=== PATIENT | male | born 1970 ===

== ENCOUNTER 2019-06-22 22:22 | Inpatient (IN) | payer OTHER ==
[2019-06-22] MEDS ORDERED: ACETAMINOPHEN TAB 500 MG TAB PO STA (22:35)
--- NOTE | 2019-06-22 23:07 | ED ---
General Adult HPI - General Chief complaint: Fever Stated complaint: Fever Time Seen by Provider: 06/22/19 22:35 Source: patient, EMS Mode of arrival: EMS Limitations: physical limitation - History of Present Illness Initial comments: Dictation was produced using [employer] dictation software. please excuse any grammatical, word or spelling errors. Chief Complaint: 49-year-old male presents with fever and respiratory symptoms. History of Present Illness: Patient is a 49-year-old male who is brought in by EMS. Patient lives at home with his mother. Patient has history of spina bifida. States that over the last several hours he's been developing fever. He took an Aleve. Patient was evaluated by his dentist yesterday on antibiotics for infected gums. Patient denies any shortness of breath, does have a mild nonproductive cough. He states he does have a little tickle in his chest. Patient states his skin hurts from the fever. Denies abdominal pain. No chest pain, no rash no burning in urination. No flank pain or lower back pain. Patient self cath himself. The ROS documented in this emergency department record has been reviewed and confirmed by me. Those systems with pertinent positive or negative responses have been documented in the HPI. All other systems are other negative and/or noncontributory. PHYSICAL EXAM: General Impression: Alert and oriented x3, not in acute distress HEENT: Normocephalic atraumatic, extra-ocular movements intact, pupils equal and reactive to light bilaterally, mucous membranes moist. Cardiovascular: Heart regular rate and rhythm, S1&S2 audible, no murmurs, rubs or gallops Chest: Lungs clear to auscultation bilaterally, no rhonchi, no wheeze, no rales Abdomen: Bowel sounds present, abdomen soft, non-tender, non-distended, no organomegaly Musculoskeletal: Pulses present and equal in all extremities, no peripheral edema Motor: no focal deficits noted Neurological: CN II-XII grossly intact, no focal motor or sensory deficits noted Skin: Intact with no visualized rashes Psych: Normal affect and mood ED course: 49-year-old male past medical history spina bifida, paraplegic. Presents today with fever. Blood pressure is stable. Patient given Tylenol orally. Temperature is improved to 101.6 with a heart rate of 125. Patient does not have any localizing symptoms however he does catheterize himself to urinate. There is strong concern for UTI sepsis. Laboratory evaluation obtained. Mild leukocytosis of 12.4. Cardiac panel unremarkable. Metabolic panel shows lactic acidosis of 2.8 with anion gap acidosis. Urinalysis positive for 56 white blood cells. Flu tests in the patient is negative. Chest x-ray is nonacute. Patient broad-spectrum antibiotics. Culture and sensitivities was reviewed from urine cultures. Clinical presentation consistent with UTI sepsis. Patient will be admitted for UTI sepsis. Discussed patient case Dr. Bingham who is willing to accept patients care. Infectious disease will be on consult. EKG interpretation: Ventricular rate 137, sinus tachycardia,. Interval and 16, QRS 80, QTc 416. No NC prolongation, no QTC prolongation, no ST or T-wave changes noted. Overall, this EKG is unremarkable - Related Data Home Medications Medication Instructions Recorded Confirmed Oxybutynin Chloride [Ditropan] 5 mg PO DAILY@1100 09/01/14 06/22/19 Amitriptyline HCl 25 mg PO HS@0000 PRN 06/22/19 06/22/19 Amoxicillin 500 mg PO Q8H 06/22/19 06/22/19 Chlorhexidine Gluconate [Periogard] 15 ml PO BID@0000,1100 06/22/19 06/22/19 DULoxetine HCL [Cymbalta] 30 mg PO BID@0000,1100 06/22/19 06/22/19 Metoprolol Succinate [Toprol XL] 50 mg PO DAILY@1100 06/22/19 06/22/19 Allergies Allergy/AdvReac Type Severity Reaction Status Date / Time piperacillin sodium AdvReac Diarrhea Verified 06/22/19 23:24 [From Zosyn] tazobactam sodium AdvReac Diarrhea Verified 06/22/19 23:24 [From Zosyn] Review of Systems ROS Statement: Those systems with pertinent positive or pertinent negative responses have been documented in the HPI. ROS Other: All systems not noted in ROS Statement are negative. Past Medical History Past Medical History: Deep Vein Thrombosis (DVT), Hypertension Additional Past Medical History / Comment(s): RIGHT HIP WOUND.has brain shunt, scoliosis, spina bifida, neurogenic bladder History of Any Multi-Drug Resistant Organisms: Other MDRO Past Surgical History: Back Surgery, Bladder Surgery Additional Past Surgical History / Comment(s): brain shunt revision, surgery for scoliosis with screws, back surgery for spina bifida, bladder augmentation, surgery for pressure ulcers . rt hip aspiration with bone biopsy 09-06-2015 Past Anesthesia/Blood Transfusion Reactions: No Reported Reaction Past Psychological History: No Psychological Hx Reported Smoking Status: Never smoker Past Alcohol Use History: Occasional Past Drug Use History: None Reported - Past Family History Mother Family Medical History: No Reported History Father Family Medical History: Diabetes Mellitus General Exam Limitations: physical limitation Course Vital Signs 06/22/19 06/22/19 06/23/19 22:28 23:58 00:46 Temperature 104.3 F H 101.6 F H Pulse Rate 147 H 125 H 122 H Respiratory 20 17 17 Rate Blood Pressure 123/85 119/75 O2 Sat by Pulse 97 98 99 Oximetry Medical Decision Making - Lab Data Result diagrams: 06/22/19 22:51 06/22/19 22:51 Lab Results 06/22/19 06/22/19 06/22/19 Range/Units 22:51 22:51 22:51 WBC 11.4 H (3.8-10.6) k/uL RBC 5.22 (4.30-5.90) m/uL Hgb 16.5 (13.0-17.5) gm/dL Hct 50.4 (39.0-53.0) % MCV 96.6 (80.0-100.0) fL MCH 31.6 (25.0-35.0) pg MCHC 32.7 (31.0-37.0) g/dL RDW 12.5 (11.5-15.5) % Plt Count 229 (150-450) k/uL Neutrophils % 82 % Lymphocytes % 7 % Monocytes % 7 % Eosinophils % 1 % Basophils % 0 % Neutrophils # 9.4 H (1.3-7.7) k/uL Lymphocytes # 0.9 L (1.0-4.8) k/uL Monocytes # 0.8 (0-1.0) k/uL Eosinophils # 0.2 (0-0.7) k/uL Basophils # 0.0 (0-0.2) k/uL PT 10.0 (9.0-12.0) sec INR 1.0 (<1.2) APTT 22.7 (22.0-30.0) sec Sodium 135 L (137-145) mmol/L Potassium 4.9 (3.5-5.1) mmol/L Chloride 104 (98-107) mmol/L Carbon Dioxide 19 L (22-30) mmol/L Anion Gap 12 mmol/L BUN 22 H (9-20) mg/dL Creatinine 0.97 (0.66-1.25) mg/dL Est GFR (CKD-EPI)AfAm >90 (>60 ml/min/1.73 sqM) Est GFR (CKD-EPI)NonAf >90 (>60 ml/min/1.73 sqM) Glucose 100 H (74-99) mg/dL Plasma Lactic Acid Don (0.7-2.0) mmol/L Calcium 9.5 (8.4-10.2) mg/dL Total Bilirubin 0.8 (0.2-1.3) mg/dL AST 66 H (17-59) U/L ALT 24 (4-49) U/L Alkaline Phosphatase 117 (38-126) U/L Troponin I (0.000-0.034) ng/mL Total Protein 8.4 H (6.3-8.2) g/dL Albumin 4.5 (3.5-5.0) g/dL Urine Color Urine Appearance (Clear) Urine pH (5.0-8.0) Ur Specific [place] (1.001-1.035) Urine Protein (Negative) Urine Glucose (UA) (Negative) Urine Ketones (Negative) Urine Blood (Negative) Urine Nitrite (Negative) Urine Bilirubin (Negative) Urine Urobilinogen (<2.0) mg/dL Ur Leukocyte Esterase (Negative) Urine RBC (0-5) /hpf Urine WBC (0-5) /hpf Urine Bacteria (None) /hpf Hyaline Casts (0-2) /lpf Urine Mucus (None) /hpf Influenza Type A RNA (Not Detectd) Influenza Type B (PCR) (Not Detectd) Group A Strep Rapid (Negative) 06/22/19 06/22/19 06/22/19 Range/Units 22:51 22:51 23:05 WBC (3.8-10.6) k/uL RBC (4.30-5.90) m/uL Hgb (13.0-17.5) gm/dL Hct (39.0-53.0) % MCV (80.0-100.0) fL MCH (25.0-35.0) pg MCHC (31.0-37.0) g/dL RDW (11.5-15.5) % Plt Count (150-450) k/uL Neutrophils % % Lymphocytes % % Monocytes % % Eosinophils % % Basophils % % Neutrophils # (1.3-7.7) k/uL Lymphocytes # (1.0-4.8) k/uL Monocytes # (0-1.0) k/uL Eosinophils # (0-0.7) k/uL Basophils # (0-0.2) k/uL PT (9.0-12.0) sec INR (<1.2) APTT (22.0-30.0) sec Sodium (137-145) mmol/L Potassium (3.5-5.1) mmol/L Chloride (98-107) mmol/L Carbon Dioxide (22-30) mmol/L Anion Gap mmol/L BUN (9-20) mg/dL Creatinine (0.66-1.25) mg/dL Est GFR (CKD-EPI)AfAm (>60 ml/min/1.73 sqM) Est GFR (CKD-EPI)NonAf (>60 ml/min/1.73 sqM) Glucose (74-99) mg/dL Plasma Lactic Acid Don 2.8 H* (0.7-2.0) mmol/L Calcium (8.4-10.2) mg/dL Total Bilirubin (0.2-1.3) mg/dL AST (17-59) U/L ALT (4-49) U/L Alkaline Phosphatase (38-126) U/L Troponin I <0.012 (0.000-0.034) ng/mL Total Protein (6.3-8.2) g/dL Albumin (3.5-5.0) g/dL Urine Color Urine Appearance (Clear) Urine pH (5.0-8.0) Ur Specific [place] (1.001-1.035) Urine Protein (Negative) Urine Glucose (UA) (Negative) Urine Ketones (Negative) Urine Blood (Negative) Urine Nitrite (Negative) Urine Bilirubin (Negative) Urine Urobilinogen (<2.0) mg/dL Ur Leukocyte Esterase (Negative) Urine RBC (0-5) /hpf Urine WBC (0-5) /hpf Urine Bacteria (None) /hpf Hyaline Casts (0-2) /lpf Urine Mucus (None) /hpf Influenza Type A RNA Not Detected (Not Detectd) Influenza Type B (PCR) Not Detected (Not Detectd) Group A Strep Rapid (Negative) 06/22/19 06/23/19 Range/Units 23:18 00:38 WBC (3.8-10.6) k/uL RBC (4.30-5.90) m/uL Hgb (13.0-17.5) gm/dL Hct (39.0-53.0) % MCV (80.0-100.0) fL MCH (25.0-35.0) pg MCHC (31.0-37.0) g/dL RDW (11.5-15.5) % Plt Count (150-450) k/uL Neutrophils % % Lymphocytes % % Monocytes % % Eosinophils % % Basophils % % Neutrophils # (1.3-7.7) k/uL Lymphocytes # (1.0-4.8) k/uL Monocytes # (0-1.0) k/uL Eosinophils # (0-0.7) k/uL Basophils # (0-0.2) k/uL PT (9.0-12.0) sec INR (<1.2) APTT (22.0-30.0) sec Sodium (137-145) mmol/L Potassium (3.5-5.1) mmol/L Chloride (98-107) mmol/L Carbon Dioxide (22-30) mmol/L Anion Gap mmol/L BUN (9-20) mg/dL Creatinine (0.66-1.25) mg/dL Est GFR (CKD-EPI)AfAm (>60 ml/min/1.73 sqM) Est GFR (CKD-EPI)NonAf (>60 ml/min/1.73 sqM) Glucose (74-99) mg/dL Plasma Lactic Acid Don (0.7-2.0) mmol/L Calcium (8.4-10.2) mg/dL Total Bilirubin (0.2-1.3) mg/dL AST (17-59) U/L ALT (4-49) U/L Alkaline Phosphatase (38-126) U/L Troponin I (0.000-0.034) ng/mL Total Protein (6.3-8.2) g/dL Albumin (3.5-5.0) g/dL Urine Color Light Yellow Urine Appearance Clear (Clear) Urine pH 5.5 (5.0-8.0) Ur Specific [place] 1.009 (1.001-1.035) Urine Protein Negative (Negative) Urine Glucose (UA) Negative (Negative) Urine Ketones Negative (Negative) Urine Blood Negative (Negative) Urine Nitrite Positive (Negative) Urine Bilirubin Negative (Negative) Urine Urobilinogen <2.0 (<2.0) mg/dL Ur Leukocyte Esterase Large H (Negative) Urine RBC 1 (0-5) /hpf Urine WBC 56 H (0-5) /hpf Urine Bacteria Rare H (None) /hpf Hyaline Casts 1 (0-2) /lpf Urine Mucus Rare H (None) /hpf Influenza Type A RNA (Not Detectd) Influenza Type B (PCR) (Not Detectd) Group A Strep Rapid Negative (Negative) Disposition Clinical Impression: Sepsis secondary to UTI Disposition: ADMITTED IP TO THIS HOSP Condition: Fair Referrals: Solomon Moran MD [Primary Care Provider] - 1-2 days Decision Time: 01:07
[2019-06-22 23:09] LABS: Basophils % (A) 0 %; Eosinophils # (A) 0.2 k/uL (0-0.7); Eosinophils % (A) 1 %; HCT 50.4 % (39.0-53.0); HGB 16.5 gm/dL (13.0-17.5); Lymphocytes # (A) 0.9 k/uL (1.0-4.8); Lymphocytes % (A) 7 %; MCH 31.6 pg (25.0-35.0); MCHC 32.7 g/dL (31.0-37.0); MCV 96.6 fL (80.0-100.0); Mean Platelet Volume 7.8; Monocytes # (A) 0.8 k/uL (0-1.0); Monocytes % (A) 7 %; Neutrophils # (A) 9.4 k/uL (1.3-7.7); Neutrophils % (A) 82 %; Platelet Count 229 k/uL (150-450); RBC 5.22 m/uL (4.30-5.90); RDW 12.5 % (11.5-15.5); WBC 11.4 k/uL (3.8-10.6)
[2019-06-22] MEDS ORDERED: SODIUM CHLORIDE 0.9% 1,000 ML IV STA (23:10)
--- NOTE | 2019-06-22 23:10 | XR ---
EXAMINATION TYPE: XR chest 1V portable DATE OF EXAM: 06/22/2019 COMPARISON: NONE HISTORY: Fever TECHNIQUE: Single view FINDINGS: There is no heart failure nor confluent pneumonic infiltrate. Costophrenic angles are clear . Heart size is normal. There are chest leads. IMPRESSION: No active cardiopulmonary disease. Normal heart.
[2019-06-22] MEDS: SODIUM CHLORIDE 0.9% 500 ML 500 ML IV SCH ×2 (23:11→23:36)
[2019-06-22 23:28] LABS: ALT 24 U/L (4-49); African American GFR (CKD) >90 (>60 ml/min/1.73 sqM); Anion Gap 12 mmol/L; Blood Urea Nitrogen 22 mg/dL (9-20); Calcium 9.5 mg/dL (8.4-10.2); Carbon Dioxide 19 mmol/L (22-30); Chloride 104 mmol/L (98-107); Glucose 100 mg/dL (74-99); Non-African American GFR(CKD) >90 (>60 ml/min/1.73 sqM); Sodium 135 mmol/L (137-145); Total Bilirubin 0.8 mg/dL (0.2-1.3)
[2019-06-22 23:30] LABS: Partial Thromboplastin Time 22.7 sec (22.0-30.0)
[2019-06-22] MEDS ORDERED: VANCOMYCIN IV PER PHARMACY 1 EACH MISC MISCELLANE PRN (23:30)
[2019-06-22 23:31] LABS: AST 66 U/L (17-59); Albumin 4.5 g/dL (3.5-5.0); Alkaline Phosphatase 117 U/L (38-126); Potassium 4.9 mmol/L (3.5-5.1); Total Protein 8.4 g/dL (6.3-8.2)
[2019-06-22] MEDS ORDERED: CEFEPIME 2 GM in SODIUM CHLORIDE 0.9% 100 ML IVPB ONE (23:45)
[2019-06-23] MEDS ORDERED: VANCOMYCIN 1,500 MG in SODIUM CHLORIDE 0.9% 250 ML IVPB ONE (00:30)
[2019-06-23 00:49] LABS: Appearance,Urine Clear (Clear); Bacteria,Urine Rare /hpf; Bilirubin,Urine Negative (Negative); Blood,Urine Negative (Negative); Color,Urine Light Yellow; Glucose,Urine (UA) Negative (Negative); Hyaline Casts,Urine 1 /lpf (0-2); Ketones,Urine Negative (Negative); Leukocyte Esterase,Urine Large (Negative); Mucus,Urine Rare /hpf; Nitrite,Urine Positive (Negative); PH, Urine 5.5 (5.0-8.0); Protein,Urine Negative (Negative); RBC,Urine 1 /hpf (0-5); Specific Gravity,Urine 1.009 (1.001-1.035); Urobilinogen,Urine <2.0 mg/dL (<2.0); WBC,Urine 56 /hpf (0-5)
[2019-06-23] MEDS ORDERED: ONDANSETRON 4 MG/2 ML VIAL IVP PRN (01:04)
[2019-06-23] MEDS ORDERED: NALOXONE 0.4 MG/ML 1 ML VIAL IV PRN (01:04)
[2019-06-23] MEDS: SODIUM CHLORIDE 0.9% 1,000 ML IV SCH ×3 (01:54→22:04)
[2019-06-23] MEDS: ACETAMINOPHEN TAB 325 MG TAB PO PRN ×2 (07:31→17:46)
[2019-06-23] MEDS ORDERED: PANTOPRAZOLE 40 MG/10 ML VIAL IV SCH (09:00)
[2019-06-23] MEDS: DULoxetine HCL 30 MG CAPSULE.DR PO SCH ×2 (11:23→23:23)
[2019-06-23] MEDS: METOPROLOL SUCCINATE (ER) 50 MG TAB.ER.24H PO SCH (11:23)
[2019-06-23] MEDS: CHLORHEXIDINE GLUCONATE 15 ML CUP MUCOUS MEM SCH ×2 (11:23→23:21)
[2019-06-23] MEDS: OXYBUTYNIN CHLORIDE 5 MG TAB PO SCH (11:23)
--- NOTE | 2019-06-23 12:40 | US ---
EXAMINATION TYPE: US kidneys/renal and bladder DATE OF EXAM: 06/23/2019 COMPARISON: NONE CLINICAL HISTORY: UTI, chronic. Patient stated had bladder augmentation using bowel; scoliosis EXAM MEASUREMENTS: Right Kidney: 8.2 x 6.0 x 4.9 cm Left Kidney: 12.6 x cm Post Void Residual Volume: NA for indwelling catheter Limited renal visualization is due to overlying bowel gas. Right Kidney: No hydronephrosis or masses seen; smaller size than left kidney Left Kidney: No hydronephrosis or masses seen Bladder: lobular appearance to super and mid bladder wall with wall folds noted and with indwelling c atheter seen in inferior bladder Bilateral Jets seen: NA with indwelling catheter IMPRESSION: No hydronephrosis or nephrolithiasis. The right upper pole is suboptimally visualized given overlying bowel gas. Urinary bladder displays a lobulated contour which is seen on the prior CT of 2005 from [facility] surgical revision of the bladder.
[2019-06-23] MEDS ORDERED: VANCOMYCIN 1,250 MG in SODIUM CHLORIDE 0.9% 250 ML IVPB SCH (13:00)
--- NOTE | 2019-06-23 14:26 | P.HPIM ---
History of Present Illness H&P Date: 06/23/19 This is a 49-year-old -[place] male patient of Dr. Moran with past medical history of spina bifida, scoliosis, hydrocephalus status post brain shunt, hypertension, DVT, neurogenic bladder. Patient currently lives in an apartment with his mother and is able to manage his own ADLs. Patient states he last had a urinary tract infection 2 years ago. He states he has been under care for an infection in his tooth by his dentist and has been on amoxicillin for 3 to fours days. He states that yesterday he developed chills and bilateral evening at 5 PM she he was having fever. He denies any diarrhea, last bowel movement was 2 days ago and normal. He denies having any abdominal pain, no back pain. He denies any chest pain, palpitations. She denies having any shortness of breath. He denies any recent travel, sick exposures. Patient came into [facility] emergency center for evaluation. Temperature 104.3, heart rate 147, blood pressure 123/85, pulse ox 97% on room air. EKG sinus tachycardia with no acute ST changes. WBC 11.4 otherwise CBC unremarkable. Sodium 135, potassium 4.9, chloride 104, CO2 19, BUN 22 and creatinine 0.97. Lactic acid 2.8 and repeat this morning of 2. AST 66, ALT 24, alkaline phosphatase 117, troponin negative. Urinalysis clear, leukoesterase large, WBC 56, bacteria rare. Influenza A and B and group A strep negative. [facility] Patient has been started on ceftriaxone for urinary tract infection. Patient normally self caths. A Lou catheter was placed in the emergency center. Review of Systems Constitutional: Reports chills, Reports fatigue, Reports fever, Reports poor appetite, Reports weakness, Denies anorexia Eyes: denies blurred vision, denies pain Ears, nose, mouth and throat: Denies dysphagia, Denies headache, Denies nasal congestion, Denies nasal discharge, Denies sore throat, Denies vertigo Cardiovascular: Denies chest pain, Denies decreased exercise tolerance, Denies dyspnea on exertion, Denies edema, Denies irregular heart beat, Denies leg edema, Denies lightheadedness, Denies palpitations, Denies shortness of breath, Denies syncope Respiratory: Denies cough, Denies cough with sputum, Denies dyspnea, Denies excessive sputum, Denies hemoptysis, Denies home oxygen, Denies respiratory infections, Denies sleep apnea, Denies wheezing Gastrointestinal: Denies abdominal pain, Denies diarrhea, Denies nausea, Denies vomiting Genitourinary: Denies dysuria Musculoskeletal: Denies frequent falls, Denies gait dysfunction, Denies muscle weakness, Denies myalgias Integumentary: Denies pruritus, Denies rash, Denies wounds Neurological: Denies change in mentation, Denies change in speech, Denies numbness, Denies seizures, Denies weakness Psychiatric: Denies anxiety, Denies depression Endocrine: Denies fatigue, Denies weight change Past Medical History Past Medical History: Deep Vein Thrombosis (DVT), Hypertension Additional Past Medical History / Comment(s): Has brain shunt, scoliosis, spina bifida, neurogenic bladder History of Any Multi-Drug Resistant Organisms: Other MDRO Past Surgical History: Back Surgery, Bladder Surgery Additional Past Surgical History / Comment(s): brain shunt revision, surgery for scoliosis with screws, back surgery for spina bifida, bladder augmentation, surgery for pressure ulcers. rt hip aspiration with bone biopsy 09-06-2015 Past Anesthesia/Blood Transfusion Reactions: No Reported Reaction Past Psychological History: No Psychological Hx Reported Smoking Status: Never smoker Past Alcohol Use History: Occasional Additional Past Alcohol Use History / Comment(s): Patient is a lifelong nonsmoker, no illicit drug use, rare alcohol use. Patient lives at home with his mother in apartment. He is wheelchair bound and able to manage his own ADLs. Patient normally self catheterizes. Past Drug Use History: None Reported - Past Family History Mother Family Medical History: No Reported History Additional Family Medical History / Comment(s): Mother is alive with no major medical problems. Father Family Medical History: Diabetes Mellitus Additional Family Medical History / Comment(s): Father has history of diabetes. Patient does not have any brothers. Patient has 2 sisters with no major medical problems. Patient is to have any children. Medications and Allergies Home Medications Medication Instructions Recorded Confirmed Type Oxybutynin Chloride [Ditropan] 5 mg PO DAILY@1100 09/01/14 06/22/19 History Amitriptyline HCl 25 mg PO HS@0000 PRN 06/22/19 06/22/19 History Amoxicillin 500 mg PO Q8H 06/22/19 06/22/19 History Chlorhexidine Gluconate [Periogard] 15 ml PO BID@0000,1100 06/22/19 06/22/19 Hi story DULoxetine HCL [Cymbalta] 30 mg PO BID@0000,1100 06/22/19 06/22/19 History Metoprolol Succinate [Toprol XL] 50 mg PO DAILY@1100 06/22/19 06/22/19 History Allergies Allergy/AdvReac Type Severity Reaction Status Date / Time piperacillin sodium AdvReac Diarrhea Verified 06/22/19 23:24 [From Zosyn] tazobactam sodium AdvReac Diarrhea Verified 06/22/19 23:24 [From Zosyn] Physical Exam Vitals: Vital Signs Temp Pulse Pulse Resp BP BP Pulse Ox 06/23/19 08:00 16 06/23/19 07:00 98.6 F 128 H 16 103/60 96 06/23/19 01:52 99.8 F H 109 H 17 100/64 99 06/23/19 01:45 99.9 F H 97 18 100/66 96 06/23/19 01:28 111 H 18 111/67 99 06/23/19 01:15 101.5 F H 06/23/19 00:46 122 H 17 119/75 99 06/22/19 23:58 101.6 F H 125 H 17 98 06/22/19 22:28 104.3 F H 147 H 20 123/85 97 Intake and Output 06/22/19 06/23/19 06/23/19 22:59 06:59 14:59 Intake Total 350 296 Output Total 200 Balance 150 296 Intake: Intake, IV Titration 350 Amount Sodium Chloride 0.9% 1, 100 000 ml @ 100 mls/hr IV . Q10H KI Rx#:[id number] Vancomycin 1,250 mg In 250 Sodium Chloride 0.9% 250 ml @ 125 mls/hr IVPB Q12H KI Rx#:[id number] Oral 296 Output: Urine 200 Other: Voiding Method Indwelling Catheter Indwelling Catheter Weight 74.843 kg 74.843 kg Gen: This is a 49-year-old male. Patient is in bed and appears to be operable and in no acute distress. HEENT: Head is atraumatic, normocephalic. Pupils equal, round. Sclerae is anicteric. NECK: Supple. No JVD. No lymphadenopathy. No thyromegaly. LUNGS: Clear to auscultation. No wheezes or rhonchi. No intercostal retractions . HEART: Regular rate and rhythm. No murmur. ABDOMEN: Soft. Bowel sounds are present. No masses. No tenderness. Lou catheter with cherri urine return. EXTREMITIES: No pedal edema. No calf tenderness. The deformity noted to the bilateral lower extremities. Patient is able to lift both legs at the hip joint. No motion below the knees. NEUROLOGICAL: Patient is awake, alert and oriented x3. Cranial nerves 2 through 12 are grossly intact. Results CBC & Chem 7: 06/22/19 22:51 06/22/19 22:51 Labs: Abnormal Lab Results - Last 24 Hours (Table) 06/22/19 06/22/19 06/22/19 Range/Units 22:51 22:51 22:51 WBC 11.4 H (3.8-10.6) k/uL Neutrophils # 9.4 H (1.3-7.7) k/uL Lymphocytes # 0.9 L (1.0-4.8) k/uL Sodium 135 L (137-145) mmol/L Carbon Dioxide 19 L (22-30) mmol/L BUN 22 H (9-20) mg/dL Glucose 100 H (74-99) mg/dL Plasma Lactic Acid Don 2.8 H* (0.7-2.0) mmol/L AST 66 H (17-59) U/L Total Protein 8.4 H (6.3-8.2) g/dL Ur Leukocyte Esterase (Negative) Urine WBC (0-5) /hpf Urine Bacteria (None) /hpf Urine Mucus (None) /hpf 06/23/19 06/23/19 Range/Units 00:38 02:56 WBC (3.8-10.6) k/uL Neutrophils # (1.3-7.7) k/uL Lymphocytes # (1.0-4.8) k/uL Sodium (137-145) mmol/L Carbon Dioxide (22-30) mmol/L BUN (9-20) mg/dL Glucose (74-99) mg/dL Plasma Lactic Acid Don 2.2 H* (0.7-2.0) mmol/L AST (17-59) U/L Total Protein (6.3-8.2) g/dL Ur Leukocyte Esterase Large H (Negative) Urine WBC 56 H (0-5) /hpf Urine Bacteria Rare H (None) /hpf Urine Mucus Rare H (None) /hpf Thrombosis Risk Factor Assmnt - DVT/VTE Prophylaxis DVT/VTE Prophylaxis: Pharmacologic Prophylaxis ordered - Choose All That Apply Each Factor Represents 1 point: Age 41-60 years Other Risk Factors: No Other congenital or acquired thrombophilia - If yes, enter type in comment: No Thrombosis Risk Factor Assessment Total Risk Factor Score: 1 Thrombosis Risk Factor Assessment Level: Low Risk Assessment and Plan Plan: 1. Acute urinary tract infection with sepsis. Urine culture and blood culture in progress. Start ceftriaxone. Discontinue vancomycin. 2. Lactic acidosis secondary to sepsis, improved. Continue IV fluids. 3. Spina bifida with paraplegia lower extremities. Continue amitriptyline 25 mg at bedtime 4. Neurogenic bladder. Maintain Lou catheter, continue oxybutynin 5 mg daily 5. Hypertension. Continue Toprol-XL 30 mg daily. 6. Tooth infection. Patient has been transitioned to ceftriaxone. Continue PerioGard. 7. Recurrent depression. Continue Cymbalta 30 mg twice daily. 8. GI prophylaxis. Protonix. 9. DVT prophylaxis. Lovenox. Patient will be admitted to the hospital for a minimum of 2 night stay. Discharge plan: Return home. Impression and plan of care have been directed as dictated by the signing physician. Anna Darden nurse practitioner acting as scribe for signing physician.
--- NOTE | 2019-06-23 22:05 | P.CONS ---
History of Present Illness - Reason for Consult Consult date: 06/23/19 UTI Requesting physician: Jewell Bingham - Chief Complaint Fever x 1 day - History of Present Illness Patient is a 49-year male with a past medical he significant for spina bifida in this patient who did have a urinary retention for which the patient self catheterize himself 3 times a day patient presented to the ER last night with a chief complaints of fever patient apparently mentioning urine is getting more darker and he was thinking he was starting coming up with UTI patient denies having any headache or URI symptoms no chest pain shortness of breath or cough no abdominal pain or any diarrhea with the symptom the patient was evaluated by the ER physician on arrival to the ER the patient did have a fever of 104.3 F patient did have a mildly positive UA with large leukocyte Estrace 56 WBC lactic acid was 2.2 influenza A PCR was negative patient did have a chest x-ray that was negative for any acute infiltrate patient has been diagnosed with a urinary tract infection he was started on Rocephin admitted to the hospital infectious disease was consulted for further recommendation about antibiotic therapy. Review of Systems positive point has been mentioned in HPI rest of the systems are negative. Past Medical History Past Medical History: Deep Vein Thrombosis (DVT), Hypertension Additional Past Medical History / Comment(s): Has brain shunt, scoliosis, spina bifida, neurogenic bladder History of Any Multi-Drug Resistant Organisms: Other MDRO Past Surgical History: Back Surgery, Bladder Surgery Additional Past Surgical History / Comment(s): brain shunt revision, surgery for scoliosis with screws, back surgery for spina bifida, bladder augmentation, surgery for pressure ulcers. rt hip aspiration with bone biopsy 09-06-2015 Past Anesthesia/Blood Transfusion Reactions: No Reported Reaction Past Psychological History: No Psychological Hx Reported Smoking Status: Never smoker Past Alcohol Use History: Occasional Past Drug Use History: None Reported - Past Family History Mother Family Medical History: No Reported History Father Family Medical History: Diabetes Mellitus Medications and Allergies Home Medications Medication Instructions Recorded Confirmed Type Oxybutynin Chloride [Ditropan] 5 mg PO DAILY@1100 09/01/14 06/22/19 History Amitriptyline HCl 25 mg PO HS@0000 PRN 06/22/19 06/22/19 History Amoxicillin 500 mg PO Q8H 06/22/19 06/22/19 History Chlorhexidine Gluconate [Periogard] 15 ml PO BID@0000,1100 06/22/19 06/22/19 History DULoxetine HCL [Cymbalta] 30 mg PO BID@0000,1100 06/22/19 06/22/19 History Metoprolol Succinate [Toprol XL] 50 mg PO DAILY@1100 06/22/19 06/22/19 History Allergies Allergy/AdvReac Type Severity Reaction Status Date / Time piperacillin sodium AdvReac Diarrhea Verified 06/22/19 23:24 [From Zosyn] tazobactam sodium AdvReac Diarrhea Verified 06/22/19 23:24 [From Zosyn] Physical Exam Vitals: Vital Signs Temp Pulse Pulse Resp BP BP Pulse Ox 06/23/19 08:00 16 06/23/19 07:00 98.6 F 128 H 16 103/60 96 06/23/19 01:52 99.8 F H 109 H 17 100/64 99 06/23/19 01:45 99.9 F H 97 18 100/66 96 06/23/19 01:28 111 H 18 111/67 99 06/23/19 01:15 101.5 F H 06/23/19 00:46 122 H 17 119/75 99 06/22/19 23:58 101.6 F H 125 H 17 98 06/22/19 22:28 104.3 F H 147 H 20 123/85 97 Intake and Output 06/22/19 06/23/19 06/23/19 22:59 06:59 14:59 Intake Total 350 532 Output Total 200 Balance 150 532 Intake: Intake, IV Titration 350 Amount Sodium Chloride 0.9% 1, 100 000 ml @ 100 mls/hr IV . Q10H KI Rx#:[id number] Vancomycin 1,250 mg In 250 Sodium Chloride 0.9% 250 ml @ 125 mls/hr IVPB Q12H KI Rx#:[id number] Oral 532 Output: Urine 200 Other: Voiding Method Indwelling Catheter Indwelling Catheter Weight 74.843 kg 74.843 kg GENERAL DESCRIPTION: Middle-aged male lying in bed, no distress. No tachypnea or accessory muscle of respiration use. HEENT: Shows Pallor , no scleral icterus. Oral mucous membrane is dry. NECK: Trachea central, no thyromegaly. LUNGS: Unlabored breathing. Clear to auscultation anteriorly. No wheeze or crackle. HEART: S1, S2, regular rate and rhythm. ABDOMEN: Soft, no tenderness , guarding or rigidity EXTREMITIES: No edema of feet. SKIN: No rash, no masses palpable. NEUROLOGICAL: The patient is awake, alert, oriented x3, mood and affect normal. Results CBC & Chem 7: 06/22/19 22:51 06/22/19 22:51 Labs: Abnormal Lab Results - Last 24 Hours (Table) 06/22/19 06/22/19 06/22/19 Range/Units 22:51 22:51 22:51 WBC 11.4 H (3.8-10.6) k/uL Neutrophils # 9.4 H (1.3-7.7) k/uL Lymphocytes # 0.9 L (1.0-4.8) k/uL Sodium 135 L (137-145) mmol/L Carbon Dioxide 19 L (22-30) mmol/L BUN 22 H (9-20) mg/dL Glucose 100 H (74-99) mg/dL Plasma Lactic Acid Don 2.8 H* (0.7-2.0) mmol/L AST 66 H (17-59) U/L Total Protein 8.4 H (6.3-8.2) g/dL Ur Leukocyte Esterase (Negative) Urine WBC (0-5) /hpf Urine Bacteria (None) /hpf Urine Mucus (None) /hpf 06/23/19 06/23/19 Range/Units 00:38 02:56 WBC (3.8-10.6) k/uL Neutrophils # (1.3-7.7) k/uL Lymphocytes # (1.0-4.8) k/uL Sodium (137-145) mmol/L Carbon Dioxide (22-30) mmol/L BUN (9-20) mg/dL Glucose (74-99) mg/dL Plasma Lactic Acid Don 2.2 H* (0.7-2.0) mmol/L AST (17-59) U/L Total Protein (6.3-8.2) g/dL Ur Leukocyte Esterase Large H (Negative) Urine WBC 56 H (0-5) /hpf Urine Bacteria Rare H (None) /hpf Urine Mucus Rare H (None) /hpf Microbiology - Last 24 Hours (Table) 06/23/19 00:38 Urine Culture - Preliminary Urine,Clean Catch 06/22/19 23:18 Group A Strep Throat Culture - Preliminary Throat Assessment and Plan Assessment: -patient presented to the hospital with fever in this patient who did have a positive UA with risk factor of self-catheterization because of urine retention for the UTI more likely from enteric gram-negative pathogen in this patient fever clinically responded to the IV Rocephin and currently with no other obvious focus of infection influenza PCR was negative chest x-ray was negative abdominal soft on clinical examination (1) Sepsis secondary to UTI Current Visit: Yes Status: Acute Code(s): A41.9 - SEPSIS, UNSPECIFIED ORGANISM; N39.0 - URINARY TRACT INFECTION, SITE NOT SPECIFIED SNOMED Code(s): 648196570 Plan: 1-Rocephin 1 g daily 2-gentle IV fluid We will follow on clinical condition and cultures to further adjust medication if needed Thank you for this consultation we will follow the patient along with you Time with Patient: Greater than 30
[2019-06-24] MEDS ORDERED: IBUPROFEN 400 MG TAB PO PRN
[2019-06-24] MEDS ORDERED: AMITRIPTYLINE HCL 25 MG TAB PO PRN
[2019-06-24] MEDS: SODIUM CHLORIDE 0.9% 1,000 ML IV SCH ×2 (08:45→17:39)
[2019-06-24] MEDS: ENOXAPARIN 40 MG/0.4 ML SYRINGE SQ SCH (08:51)
[2019-06-24] MEDS: METOPROLOL SUCCINATE (ER) 50 MG TAB.ER.24H PO SCH (08:52)
[2019-06-24] MEDS: PANTOPRAZOLE 40 MG TABLET PO SCH (08:52)
[2019-06-24] MEDS ORDERED: SODIUM CHLORIDE 0.9% 1,000 ML IV ONE (10:19)
[2019-06-24] MEDS ORDERED: KETOROLAC 30 MG/ML 1 ML VIAL IVP PRN (10:21)
[2019-06-24] MEDS: CHLORHEXIDINE GLUCONATE 15 ML CUP MUCOUS MEM SCH ×2 (12:00→22:50)
[2019-06-24] MEDS: DULoxetine HCL 30 MG CAPSULE.DR PO SCH ×2 (12:00→22:50)
[2019-06-24] MEDS: OXYBUTYNIN CHLORIDE 5 MG TAB PO SCH (12:00)
--- NOTE | 2019-06-24 13:28 | P.PN ---
Subjective Progress Note Date: 06/24/19 This is a 49-year-old -Burm[place] male patient of Dr. Moran with past medical history of spina bifida, scoliosis, hydrocephalus status post brain shunt, hypertension, DVT, neurogenic bladder. Patient currently lives in an apartment with his mother and is able to manage his own ADLs. Patient states he last had a urinary tract infection 2 years ago. He states he has been under care for an infection in his tooth by his dentist and has been on amoxicillin for 3 to fours days. He states that yesterday he developed chills and bilateral evening at 5 PM she he was having fever. He denies any diarrhea, last bowel movement was 2 days ago and normal. He denies having any abdominal pain, no back pain. He denies any chest pain, palpitations. She denies having any shortness of breath. He denies any recent travel, sick exposures. Patient came into [facility] emergency center for evaluation. Temperature 104.3, heart rate 147, blood pressure 123/85, pulse ox 97% on room air. EKG sinus tachycardia with no acute ST changes. WBC 11.4 otherwise CBC unremarkable. Sodium 135, potassium 4.9, chloride 104, CO2 19, BUN 22 and creatinine 0.97. Lactic acid 2.8 and repeat this morning of 2. AST 66, ALT 24, alkaline phosphatase 117, troponin negative. Urinalysis clear, leukoesterase large, WBC 56, bacteria rare. Influenza A and B and group A strep negative. Patient was admitted to the [facility] floor. Patient has been started on ceftriaxone for urinary tract infection. Patient normally self caths. A Lou catheter was placed in the emergency center. 06/23: Patient has been seen by Dr. Interiano and patient continued on ceftriaxone. Urine culture is currently in progress. Culture is in progress. Patient had sinus tachycardia 130 to 140s this morning. After nurse gave his beta boo, heart rate is now running in the patient also developed headache yesterday evening 110-115. 1 L of IV fluids will be ordered for bolus. Patient developed headache last evening and was given Motrin without any improvement of his pain. Toradol will be ordered. Patient states he feels a little feverish still but improved. He denies any nausea, no neck pain, no visual changes. Patient has been afebrile, heart rate 109, blood pressure 109/68, pulse ox 93% on room air. Objective - Vital Signs Vital signs: Vital Signs Temp 98.2 F 06/24/19 07:00 Pulse 56 L 06/24/19 07:00 Resp 18 06/24/19 07:00 BP 164/73 06/24/19 07:00 Pulse Ox 98 06/24/19 07:00 Intake & Output 06/23/19 06/24/19 06/24/19 18:59 06:59 18:59 Intake Total 828 Output Total 1300 1450 Balance -472 -1450 Intake: Oral 828 Output: Urine 1300 1450 Other: Voiding Method Indwelling Catheter Indwelling Catheter - Exam Review of Systems Constitutional: Reports chills, Reports fatigue, Reports fever, Reports poor appetite, Reports weakness, Denies anorexia, reports headache Eyes: denies blurred vision, denies pain Ears, nose, mouth and throat: Denies dysphagia, Denies headache, Denies nasal congestion, Denies nasal discharge, Denies sore throat, Denies vertigo Cardiovascular: Denies chest pain, Denies decreased exercise tolerance, Denies dyspnea on exertion, Denies edema, Denies irregular heart beat, Denies leg edema, Denies lightheadedness, Denies palpitations, Denies shortness of breath, Denies syncope Respiratory: Denies cough, Denies cough with sputum, Denies dyspnea, Denies excessive sputum, Denies hemoptysis, Denies home oxygen, Denies respiratory infections, Denies sleep apnea, Denies wheezing Gastrointestinal: Denies abdominal pain, Denies diarrhea, Denies nausea, Denies vomiting Genitourinary: Denies dysuria Musculoskeletal: Denies frequent falls, Denies gait dysfunction, Denies muscle weakness, Denies myalgias Integumentary: Denies pruritus, Denies rash, Denies wounds Neurological: Denies change in mentation, Denies change in speech, Denies numbness, Denies seizures, Denies weakness Psychiatric: Denies anxiety, Denies depression Endocrine: Denies fatigue, Denies weight change Physical examination Gen: This is a 49-year-old male. Patient is in bed and appears to be comfortable and in no acute distress. HEENT: Head is atraumatic, normocephalic. Pupils equal, round. Sclerae is anicteric. NECK: Supple. No JVD. No lymphadenopathy. No thyromegaly. LUNGS: Clear to auscultation. No wheezes or rhonchi. No intercostal retra ctions. HEART: Regular rate and rhythm. No murmur. ABDOMEN: Soft. Bowel sounds are present. No masses. No tenderness. Lou catheter with cherri urine return. EXTREMITIES: No pedal edema. No calf tenderness. The deformity noted to the bilateral lower extremities. Patient is able to lift both legs at the hip joint. No motion below the knees. NEUROLOGICAL: Patient is awake, alert and oriented x3. Cranial nerves 2 through 12 are grossly intact. - Labs CBC & Chem 7: 06/22/19 22:51 06/22/19 22:51 Labs: Microbiology - Last 24 Hours (Table) 06/22/19 22:51 Blood Culture - Preliminary Blood No Growth after 24 hours 06/23/19 00:38 Urine Culture - Preliminary Urine,Clean Catch 06/22/19 23:18 Group A Strep Throat Culture - Preliminary Throat Assessment and Plan Plan: 1. Acute urinary tract infection with sepsis. Urine culture and blood culture in progress. Continue ceftriaxone. Discontinue vancomycin. Consult with Dr. Jaydon de los santos. 2. Lactic acidosis secondary to sepsis, improved. Continue IV fluids. 3. Spina bifida with paraplegia lower extremities. Continue amitriptyline 25 mg at bedtime 4. Neurogenic bladder. Maintain Lou catheter, continue oxybutynin 5 mg daily. Patient normally self caths. Straight cath have been ordered for the patient to use at home. 5. Hypertension. Continue Toprol-XL 30 mg daily. 6. Tooth infection. Patient has been transitioned to ceftriaxone. Continue PerioGard. 7. Recurrent depression. Continue Cymbalta 30 mg twice daily. 8. GI prophylaxis. Protonix. 9. DVT prophylaxis. Lovenox. Discharge plan: Return home Friday. Impression and plan of care have been directed as dictated by the signing physician. Anna Darden nurse practitioner acting as scribe for signing physician.
--- NOTE | 2019-06-24 17:08 | PN ---
PROGRESS NOTE DATE OF SERVICE: 06/24/2019 REASON FOR FOLLOWUP: Urinary tract infection. INTERVAL HISTORY: The patient is currently afebrile and has been breathing comfortably. The patient denies having any chest pain or cough. No nausea, vomiting, abdominal pain, or diarrhea. PHYSICAL EXAMINATION: Blood pressure is 142/93 with a pulse of 105, temperature 99.4. He is 96% on room air. GENERAL DESCRIPTION: Middle-aged male lying in bed in no distress. RESPIRATORY SYSTEM: Unlabored breathing, clear to auscultation anteriorly. HEART: S1, S2. Regular rate and rhythm. ABDOMEN: Soft. No tenderness. LABS: Blood and urine cultures have been coming back negative so far. DIAGNOSTIC IMPRESSION AND PLAN: Patient admitted to hospital with fever. Concern is likely for a symptomatic urinary tract infection in view of this patient who catheterizes himself for urine retention. The patient clinically responded to the Rocephin and will finish therapy with a short course of oral Ceftin. Continue with supportive care. MMODL / IJN: [id number] /
[2019-06-24] MEDS ORDERED: BUTALB/APAP/CAFF 50-325-40MG TAB PO PRN (17:44)
[2019-06-24] MEDS: LORATADINE-PSEUDOEPH 5-120 MG 1 EACH TAB.ER.12H PO PRN (19:58)
[2019-06-25] MEDS: SODIUM CHLORIDE 0.9% 1,000 ML IV SCH (03:39)
[2019-06-25 07:28] LABS: HCT 37.1 % (39.0-53.0); MCH 31.7 pg (25.0-35.0); MCHC 32.4 g/dL (31.0-37.0); MCV 97.9 fL (80.0-100.0); Mean Platelet Volume 8.1; Platelet Count 158 k/uL (150-450); RBC 3.79 m/uL (4.30-5.90); RDW 12.9 % (11.5-15.5); WBC 7.2 k/uL (3.8-10.6)
[2019-06-25 07:30] LABS: ALT 14 U/L (4-49); AST 23 U/L (17-59); African American GFR (CKD) >90 (>60 ml/min/1.73 sqM); Albumin 2.8 g/dL (3.5-5.0); Alkaline Phosphatase 67 U/L (38-126); Anion Gap 7 mmol/L; Blood Urea Nitrogen 10 mg/dL (9-20); Calcium 8.2 mg/dL (8.4-10.2); Carbon Dioxide 18 mmol/L (22-30); Chloride 112 mmol/L (98-107); Glucose 95 mg/dL (74-99); Non-African American GFR(CKD) >90 (>60 ml/min/1.73 sqM); Sodium 137 mmol/L (137-145); Total Bilirubin 0.3 mg/dL (0.2-1.3); Total Protein 5.7 g/dL (6.3-8.2)
[2019-06-25] MEDS: PANTOPRAZOLE 40 MG TABLET PO SCH (08:32)
[2019-06-25] MEDS: METOPROLOL SUCCINATE (ER) 50 MG TAB.ER.24H PO SCH (08:32)
[2019-06-25] MEDS: ENOXAPARIN 40 MG/0.4 ML SYRINGE SQ SCH (08:32)
--- NOTE | 2019-06-25 09:49 | CDI ---
Documentation Clarification Form Date: 06/25/2019 09:24:55 AM From: Marly Wood RN, CCDS Admit Date: 06/25/2019 08:17:00 AM Patient Name: Igor Lanza Visit Number: [id number] Discharge Date: ATTENTION: The Clinical Documentation Specialists (CDI) and [facility] Coding Staff appreciate your assistance in clarifying documentation. Please respond to the clarification below the line at the bottom and electronically sign. The CDI & [facility] Coding staff will review the response and follow-up if needed. Please note: Queries are made part of the Legal Health Record. If you have any questions, please contact the author of this message via ITS. Dr. Jewell Bingham UTI was documented in the ED assessment, H&P and subsequent progress notes. History also notes patient self catheterizes for urine retention and further clarification is requested. History/Risk Factors: Spina Bifida, Scoliosis, Neurogenic bladder Clinical Indicators: 49-year-old with neurogenic bladder who self-caths, present to emergency center for evaluation of fever and chills. Vital Signs: 06/21: 123/85 147 20 104.3 06/21 WBC: 11.4, Lactic acid 2.8, 06/21 Urinalysis: clear, Leukocyte esterase large 06/21 Urine Culture: No growth after 18 hours 06/22 ID (Dr. Interiano) Patient presented to the hospital with fever in this patient who did have a positive UA with risk factor of self-catheterization because of urine retention for the UTI more likely from enteric gram-negative pathogens.. Treatment Rocephin 1 gm IV .9 Saline @ 100 mls/hr IV Please document the condition that these clinical indicators signify, whether Present on Admission, and cause if known: UTI with Sepsis due to self-catheterization Other, please specify Unable to determine Present on Admission: Yes No (Last Revision: January 2017) UTI with sepsis , present on admission - yes MTDD
[2019-06-25] MEDS: LORATADINE-PSEUDOEPH 5-120 MG 1 EACH TAB.ER.12H PO PRN (10:42)
[2019-06-25] MEDS: CHLORHEXIDINE GLUCONATE 15 ML CUP MUCOUS MEM SCH (10:42)
[2019-06-25] MEDS: DULoxetine HCL 30 MG CAPSULE.DR PO SCH (10:42)
[2019-06-25] MEDS: OXYBUTYNIN CHLORIDE 5 MG TAB PO SCH (10:42)
[2019-06-25] MEDS ORDERED: FUROSEMIDE 10 MG/ML 4 ML VIAL IV STA (12:44)
--- NOTE | 2019-06-25 14:42 | P.DS ---
Providers Date of admission: 06/25/19 08:17 Expected date of discharge: 06/25/19 Attending physician: Jewell Bingham MD Consults: 06/23/19 01:06 Consult Physician Routine Consulting Provider: James Intreiano Consult Reason/Comments: uti, hx of drug resistance Do you want consulting provider notified?: Yes Primary care physician: Solomon Moran [facility] Hospital Course: This is a 49-year-old -Surinamese male patient of Dr. Moran with past medical history of spina bifida, scoliosis, hydrocephalus status post brain shunt, hypertension, DVT, neurogenic bladder. Patient currently lives in an apartment with his mother and is able to manage his own ADLs. Patient states he last had a urinary tract infection 2 years ago. He states he has been under care for an infection in his tooth by his dentist and has been on amoxicillin for 3 to fours days. He states that yesterday he developed chills and bilateral evening at 5 PM she he was having fever. He denies any diarrhea, last bowel movement was 2 days ago and normal. He denies having any abdominal pain, no back pain. He denies any chest pain, palpitations. She denies having any shortness of breath. He denies any recent travel, sick exposures. Patient came into [facility] emergency center for evaluation. Temperature 104.3, heart rate 147, blood pressure 123/85, pulse ox 97% on room air. EKG sinus tachycardia with no acute ST changes. WBC 11.4 otherwise CBC unremarkable. Sodium 135, potassium 4.9, chloride 104, CO2 19, BUN 22 and creatinine 0.97. Lactic acid 2.8 and repeat this morning of 2. AST 66, ALT 24, alkaline phosphatase 117, troponin negative. Urinalysis clear, leukoesterase large, WBC 56, bacteria rare. Influenza A and B and group A strep negative. Patient was admitted to the [facility] floor. Patient has been started on ceftriaxone for urinary tract infection. Patient normally self caths. A Lou catheter was placed in the emergency center. 06/23: Patient has been seen by Dr. Interiano and patient continued on ceftriaxone. Urine culture is currently in progress. Culture is in progress. Patient had sinus tachycardia 130 to 140s this morning. After nurse gave his beta boo, heart rate is now running in the patient also developed headache yesterday evening 110-115. 1 L of IV fluids will be ordered for bolus. Patient developed headache last evening and was given Motrin without any improvement of his pain. Toradol will be ordered. Patient states he feels a little feverish still but improved. He denies any nausea, no neck pain, no visual changes. Patient has been afebrile, heart rate 109, blood pressure 109/68, pulse ox 93% on room air. 06/24: Urine culture showing no growth at 18 hours. Patient continued to have headache yesterday afternoon and Toradol did not seem to help. Fioricet was given which showed some improvement. Dr. Interiano has recommended Ceftin. Patient has been afebrile, heart rate 99, blood pressure 91/58, pulse ox 95% on room air. Repeat blood work reveals CBC 7.2, hemoglobin 12, chloride 112, CO2 18, BUN 10 and creatinine 0.77. Patient has some mild lower extremity edema for which one dose of IV Lasix will be given and IV fluids discontinued. Patient will be discharged home today in stable condition. Lou catheter will be removed prior to discharge. Discharge diagnoses: 1. Acute sepsis most likely secondary to tooth infection that failed outpatient treatment, catheter associated UTI not completely ruled out. 2. Lactic acidosis secondary to sepsis, improved. 3. Spina bifida with paraplegia lower extremities. 4. Neurogenic bladder. 5. Hypertension. 6. Tooth infection. 7. Recurrent depression. Discharge plan: home Impression and plan of care have been directed as dictated by the signing physician. Anna Darden nurse practitioner acting as scribe for signing physician. Patient Condition at Discharge: Good Plan - Discharge Summary Discharge Rx Participant: No New Discharge Prescriptions: New Cefuroxime Axetil [Ceftin] 500 mg PO BID 7 Days #14 tab Continue Oxybutynin Chloride [Ditropan] 5 mg PO DAILY@1100 Chlorhexidine Gluconate [Periogard] 15 ml PO BID@0000,1100 DULoxetine HCL [Cymbalta] 30 mg PO BID@0000,1100 Amitriptyline HCl 25 mg PO HS@0000 PRN PRN Reason: Insomnia Metoprolol Succinate [Toprol XL] 50 mg PO DAILY@1100 Discontinued Amoxicillin 500 mg PO Q8H Discharge Medication List Oxybutynin Chloride [Ditropan] 5 mg PO DAILY@1100 09/01/14 [History] Amitriptyline HCl 25 mg PO HS@0000 PRN 06/22/19 [History] Chlorhexidine Gluconate [Periogard] 15 ml PO BID@0000,1100 06/22/19 [History] DULoxetine HCL [Cymbalta] 30 mg PO BID@0000,1100 06/22/19 [History] Metoprolol Succinate [Toprol XL] 50 mg PO DAILY@1100 06/22/19 [History] Cefuroxime Axetil [Ceftin] 500 mg PO BID 7 Days #14 tab 06/25/19 [Rx] Follow up Appointment(s)/Referral(s): Solomon Moran MD [Primary Care Provider] - 1 Week (Office closed at time of discharge please call Friday to set up a follow up appointment) Discharge Disposition: HOME SELF-CARE
[2019-06-25 14:47] VITALS: BP 129/81; PULSE 101; RESP 16; TEMP 99.2
--- NOTE | 2019-06-25 16:08 | PN ---
PROGRESS NOTE DATE OF SERVICE: 06/25/2019. REASON FOR FOLLOWUP: Urinary tract infection. The patient is currently afebrile. The patient has been breathing comfortably. Patient denies any chest pain. No shortness of breath or cough. No nausea or vomiting. No abdominal pain. No diarrhea. On examination, blood pressure 129/81 with a pulse of 101. Temperature 98.2. He is 95% on room air. General description is a middle aged male lying in bed in no distress. Respiratory system: Unlabored breathing, clear to auscultation. Heart: S1, S2 regular rate and rhythm. Abdomen soft, no tenderness. LABORATORY DATA: Hemoglobin 12, white count 7.2, creatinine 0.47. DIAGNOSTIC IMPRESSION AND PLAN: The patient admitted to the hospital with fever, not feeling well with concern for urinary tract infection. The patient did have a urine with some cloudiness. The patient's urinalysis was positive. Culture came back negative. However, the patient clinically responded to Rocephin and plan to finish a short course of oral Ceftin. Continue supportive care. MMODL / IJN: [id number] /
== END 2019-06-25 17:06 | disposition home or self-care (01) | DRG 872 ==
LOC: EC 22:22 → 4SSUR 06-23 01:04 → EC 06-23 01:54 → OBSVTOIN 06-25 08:17
PROVIDERS: ADMIT Internal Medicine; ATTEND Internal Medicine
DX: A41.9 Sepsis, unspecified organism (principal); T83.518A Infection and inflammatory reaction due to other urinary catheter, initial encounter; N39.0 Urinary tract infection, site not specified; E87.2 Acidosis; F33.9 Major depressive disorder, recurrent, unspecified; G82.20 Paraplegia, unspecified; Y84.6 Urinary catheterization as the cause of abnormal reaction of the patient, or of later complication, without mention of misadventure at the time of the procedure; M41.9 Scoliosis, unspecified; N31.9 Neuromuscular dysfunction of bladder, unspecified; K05.10 Chronic gingivitis, plaque induced; K04.7 Periapical abscess without sinus; I10 Essential (primary) hypertension; Z83.3 Family history of diabetes mellitus; Z79.899 Other long term (current) drug therapy; Z86.718 Personal history of other venous thrombosis and embolism; Z86.19 Personal history of other infectious and parasitic diseases; Z98.890 Other specified postprocedural states; Z88.8 Allergy status to other drugs, medicaments and biological substances; Z91.09 Other allergy status, other than to drugs and biological substances; Q05.9 Spina bifida, unspecified; Z99.3 Dependence on wheelchair
CPT/HCPCS: 36415; 51702; 71045; 76770; 80053; 81001; 83605; 84484; 85025; 85027; 85610; 85730; 87040; 87081; 87086; 87430; 87502; 93005; 96361; 96365; 96367; 99285

== ENCOUNTER 2019-09-20 16:58 | Inpatient (IN) | payer OTHER ==
--- NOTE | 2019-09-20 17:31 | ED ---
General Adult HPI - General Chief complaint: Recheck/Abnormal Lab/Rx Stated complaint: Poss UTI Time Seen by Provider: 09/20/19 17:02 Source: patient, EMS Mode of arrival: EMS Limitations: no limitations - History of Present Illness Initial comments: Dictation was produced using [employer] dictation software. please excuse any grammatical, word or spelling errors. This patient was cared for during a federal and state declared state of emergency secondary to Covid 19 Chief Complaint: 49-year-old male presents with fevers. History of Present Illness: 49-year-old male he is a paraplegic. Patient self caths. Patient is history of frequent urinary tract infections. Patient states that he began having fevers approximately 3 hours ago. Patient Himself approximately 2 hours ago he noticed that he did have mild cloudy appearance to it. Denies any pain and no flank pain. No dysuria or suprapubic pain. Patient has any cough. Denies any exposure to anyone with symptoms of URI. The ROS documented in this emergency department record has been reviewed and confirmed by me. Those systems with pertinent positive or negative responses have been documented in the HPI. All other systems are other negative and/or noncontributory. PHYSICAL EXAM: General Impression: Alert and oriented x3, not in acute distress HEENT: Normocephalic atraumatic, extra-ocular movements intact, pupils equal and reactive to light bilaterally, mucous membranes moist. Cardiovascular: Heart regular rate and rhythm Chest: Able to complete full sentences, no retractions, no tachypnea Abdomen: abdomen soft, non-tender, non-distended, no organomegaly Musculoskeletal: Pulses present and equal in all extremities, no peripheral edema Motor: no focal deficits noted Neurological: CN II-XII grossly intact, no focal motor or sensory deficits noted Skin: Intact with no visualized rashes Psych: Normal affect and mood ED course: 49-year-old male presents with fever. vital signs upon arrival shows temperature 102.5, heart rate of 105 cumbersome vital signs within acceptable limits. Laboratory evaluation obtained. Mild leukocytosis of 12.3. Metabolic panel shows potassium 5.8 with slight hemolysis. Sodium 131. Lactic acidosis of 2.9. Urinalysis consistent with urinary tract infection. Chest x-ray shows no acute processes. Consider patient's clinical presentation there is concern of early UTI sepsis. Given the lactic acidosis ability patient benefit from inpatient stay for medical monitoring. Discussed patient case with Dr. Aparicio who is willing to accept patient's care. He request that patient be consulted to infectious disease. Patient treated with Rocephin. Patient understandable agreeable with disposition. EKG interpretation: Ventricular rate 108, sinus tachycardia,. 120, QRS 82, QTC 410. No MI prolongation, no QTC prolongation, no ST or T-wave changes noted. Overall, this EKG is unremarkable - Related Data Home Medications Medication Instructions Recorded Confirmed Oxybutynin Chloride [Ditropan] 5 mg PO DAILY@1100 09/01/14 09/20/19 Amitriptyline HCl 25 mg PO HS@0000 PRN 06/22/19 09/20/19 DULoxetine HCL [Cymbalta] 30 mg PO BID@0000,1100 06/22/19 09/20/19 Metoprolol Succinate [Toprol XL] 50 mg PO DAILY@1100 06/22/19 09/20/19 Naproxen Sodium [Aleve] 440 mg PO DAILY PRN 09/20/19 09/20/19 Allergies Allergy/AdvReac Type Severity Reaction Status Date / Time Penicillins AdvReac fever Verified 09/20/19 18:55 piperacillin sodium AdvReac Diarrhea Verified 09/20/19 18:55 [From Zosyn] povidone-iodine AdvReac Rash/Hives Verified 09/20/19 18:55 [From Betadine] soap [From Betadine] AdvReac Rash/Hives Verified 09/20/19 18:55 tazobactam sodium AdvReac Diarrhea Verified 09/20/19 18:55 [From Zosyn] Review of Systems ROS Statement: Those systems with pertinent positive or pertinent negative responses have been documented in the HPI. ROS Other: All systems not noted in ROS Statement are negative. Past Medical History Past Medical History: Deep Vein Thrombosis (DVT), Hypertension Additional Past Medical History / Comment(s): Has brain shunt, scoliosis, spina bifida, neurogenic bladder History of Any Multi-Drug Resistant Organisms: Other MDRO Past Surgical History: Back Surgery, Bladder Surgery Additional Past Surgical History / Comment(s): brain shunt revision, surgery for scoliosis with screws, back surgery for spina bifida, bladder augmentation, surgery for pressure ulcers. rt hip aspiration with bone biopsy 09-06-2015 Past Anesthesia/Blood Transfusion Reactions: No Reported Reaction Past Psychological History: Anxiety, Depression, Panic Disorder Smoking Status: Never smoker Past Alcohol Use History: Occasional Past Drug Use History: None Reported - Past Family History Mother Family Medical History: No Reported History Additional Family Medical History / Comment(s): Mother is alive with no major medical problems. Father Family Medical History: Diabetes Mellitus Additional Family Medical History / Comment(s): Father has history of diabetes. Patient does not have any brothers. Patient has 2 sisters with no major medical problems. Patient is to have any children. General Exam Limitations: no limitations Course Vital Signs 09/20/19 09/20/19 09/20/19 17:00 17:08 18:08 Temperature 102.5 F H Pulse Rate 105 H 100 Respiratory 20 20 20 Rate Blood Pressure 155/104 155/104 O2 Sat by Pulse 100 99 Oximetry 09/20/19 18:51 Temperature 101.3 F H Pulse Rate 105 H Respiratory 20 Rate Blood Pressure 128/78 O2 Sat by Pulse 99 Oximetry Medical Decision Making - Lab Data Result diagrams: 09/20/19 17:35 09/20/19 17:35 Lab Results 09/20/19 09/20/19 09/20/19 Range/Units 17:35 17:35 17:35 WBC 12.3 H (3.8-10.6) k/uL RBC 5.32 (4.30-5.90) m/uL Hgb 16.4 (13.0-17.5) gm/dL Hct 52.2 (39.0-53.0) % MCV 98.2 (80.0-100.0) fL MCH 30.9 (25.0-35.0) pg MCHC 31.5 (31.0-37.0) g/dL RDW 13.0 (11.5-15.5) % Plt Count 237 (150-450) k/uL Neutrophils % 79 % Lymphocytes % 11 % Monocytes % 6 % Eosinophils % 2 % Basophils % 1 % Neutrophils # 9.7 H (1.3-7.7) k/uL Lymphocytes # 1.3 (1.0-4.8) k/uL Monocytes # 0.8 (0-1.0) k/uL Eosinophils # 0.3 (0-0.7) k/uL Basophils # 0.1 (0-0.2) k/uL Sodium 131 L (137-145) mmol/L Potassium 5.8 H (3.5-5.1) mmol/L Chloride 100 (98-107) mmol/L Carbon Dioxide 21 L (22-30) mmol/L Anion Gap 10 mmol/L BUN 18 (9-20) mg/dL Creatinine 0.85 (0.66-1.25) mg/dL Est GFR (CKD-EPI)AfAm >90 (>60 ml/min/1.73 sqM) Est GFR (CKD-EPI)NonAf >90 (>60 ml/min/1.73 sqM) Glucose 78 (74-99) mg/dL Plasma Lactic Acid Don 2.9 H* (0.7-2.0) mmol/L Calcium 9.6 (8.4-10.2) mg/dL Urine Color Urine Appearance (Clear) Urine pH (5.0-8.0) Ur Specific [place] (1.001-1.035) Urine Protein (Negative) Urine Glucose (UA) (Negative) Urine Ketones (Negative) Urine Blood (Negative) Urine Nitrite (Negative) Urine Bilirubin (Negative) Urine Urobilinogen (<2.0) mg/dL Ur Leukocyte Esterase (Negative) Urine RBC (0-5) /hpf Urine WBC (0-5) /hpf Urine WBC Clumps (None) /hpf Ur Squamous Epith Cells (0-4) /hpf Urine Bacteria (None) /hpf Urine Mucus (None) /hpf 06/15/20 Range/Units 18:05 WBC (3.8-10.6) k/uL RBC (4.30-5.90) m/uL Hgb (13.0-17.5) gm/dL Hct (39.0-53.0) % MCV (80.0-100.0) fL MCH (25.0-35.0) pg MCHC (31.0-37.0) g/dL RDW (11.5-15.5) % Plt Count (150-450) k/uL Neutrophils % % Lymphocytes % % Monocytes % % Eosinophils % % Basophils % % Neutrophils # (1.3-7.7) k/uL Lymphocytes # (1.0-4.8) k/uL Monocytes # (0-1.0) k/uL Eosinophils # (0-0.7) k/uL Basophils # (0-0.2) k/uL Sodium (137-145) mmol/L Potassium (3.5-5.1) mmol/L Chloride (98-107) mmol/L Carbon Dioxide (22-30) mmol/L Anion Gap mmol/L BUN (9-20) mg/dL Creatinine (0.66-1.25) mg/dL Est GFR (CKD-EPI)AfAm (>60 ml/min/1.73 sqM) Est GFR (CKD-EPI)NonAf (>60 ml/min/1.73 sqM) Glucose (74-99) mg/dL Plasma Lactic Acid Don (0.7-2.0) mmol/L Calcium (8.4-10.2) mg/dL Urine Color Yellow Urine Appearance Turbid (Clear) Urine pH 6.0 (5.0-8.0) Ur Specific [place] 1.017 (1.001-1.035) Urine Protein Trace H (Negative) Urine Glucose (UA) Negative (Negative) Urine Ketones Negative (Negative) Urine Blood Small H (Negative) Urine Nitrite Positive (Negative) Urine Bilirubin Negative (Negative) Urine Urobilinogen <2.0 (<2.0) mg/dL Ur Leukocyte Esterase Large H (Negative) Urine RBC 70 H (0-5) /hpf Urine WBC >182 H (0-5) /hpf Urine WBC Clumps Many H (None) /hpf Ur Squamous Epith Cells 4 (0-4) /hpf Urine Bacteria Moderate H (None) /hpf Urine Mucus Occasional H (None) /hpf Disposition Clinical Impression: Sepsis secondary to UTI Disposition: ADMITTED IP TO THIS [facility] Condition: Fair Referrals: Solomon Moran MD [Primary Care Provider] - 1-2 days Decision Time: 19:01
[2019-09-20] MEDS ORDERED: ACETAMINOPHEN TAB 500 MG TAB PO STA (17:52)
[2019-09-20 17:59] LABS: Basophils # (A) 0.1 k/uL (0-0.2); Basophils % (A) 1 %; Eosinophils # (A) 0.3 k/uL (0-0.7); Eosinophils % (A) 2 %; HCT 52.2 % (39.0-53.0); HGB 16.4 gm/dL (13.0-17.5); Lymphocytes # (A) 1.3 k/uL (1.0-4.8); Lymphocytes % (A) 11 %; MCH 30.9 pg (25.0-35.0); MCHC 31.5 g/dL (31.0-37.0); MCV 98.2 fL (80.0-100.0); Mean Platelet Volume 7.3; Monocytes # (A) 0.8 k/uL (0-1.0); Monocytes % (A) 6 %; Neutrophils # (A) 9.7 k/uL (1.3-7.7); Neutrophils % (A) 79 %; Platelet Count 237 k/uL (150-450); RBC 5.32 m/uL (4.30-5.90); WBC 12.3 k/uL (3.8-10.6)
--- NOTE | 2019-09-20 18:09 | XR ---
EXAMINATION TYPE: XR chest 1V portable DATE OF EXAM: 09/20/2019 COMPARISON: Prior chest x-ray 06/22/2019 HISTORY: Fever TECHNIQUE: Single frontal view of the chest is obtained. FINDINGS: Ventriculoperitoneal shunt tubing is seen along the right neck and chest. No evident pneum othorax or pleural effusion. Patient is rotated, cardiac mediastinal silhouette, pulmonary vascularit y and anum are stable. Postop changes are noted to the lower thoracic spine. Lung volumes are low, no evident airspace disease. IMPRESSION: No acute process. Expiratory rotated exam.
[2019-09-20 18:27] LABS: African American GFR (CKD) >90 (>60 ml/min/1.73 sqM); Anion Gap 10 mmol/L; Blood Urea Nitrogen 18 mg/dL (9-20); Calcium 9.6 mg/dL (8.4-10.2); Carbon Dioxide 21 mmol/L (22-30); Chloride 100 mmol/L (98-107); Glucose 78 mg/dL (74-99); Non-African American GFR(CKD) >90 (>60 ml/min/1.73 sqM); Sodium 131 mmol/L (137-145)
[2019-09-20 18:29] LABS: Potassium 5.8 mmol/L (3.5-5.1)
[2019-09-20 18:32] LABS: Appearance,Urine Turbid (Clear); Bacteria,Urine Moderate /hpf; Bilirubin,Urine Negative (Negative); Blood,Urine Small (Negative); Color,Urine Yellow; Glucose,Urine (UA) Negative (Negative); Ketones,Urine Negative (Negative); Leukocyte Esterase,Urine Large (Negative); Mucus,Urine Occasional /hpf; Nitrite,Urine Positive (Negative); Protein,Urine Trace (Negative); RBC,Urine 70 /hpf (0-5); Specific Gravity,Urine 1.017 (1.001-1.035); Squamous Epithelial Cell,Urine 4 /hpf (0-4); Urobilinogen,Urine <2.0 mg/dL (<2.0); WBC,Urine >182 /hpf (0-5)
[2019-09-20] MEDS ORDERED: cefTRIAXone IN SWFI 1,000 MG/10 ML SYRINGE IVP STA (18:50)
[2019-09-20] MEDS ORDERED: NALOXONE 0.4 MG/ML 1 ML VIAL IV PRN (18:57)
[2019-09-20] MEDS ORDERED: ACETAMINOPHEN TAB 325 MG TAB PO PRN (20:18)
[2019-09-20] MEDS: SODIUM CHLORIDE 0.9% 1,000 ML IV SCH (22:03)
[2019-09-21] MEDS: AMITRIPTYLINE HCL 25 MG TAB PO PRN (01:58)
[2019-09-21] MEDS: DULoxetine HCL 30 MG CAPSULE.DR PO SCH ×2 (01:58→13:35)
--- NOTE | 2019-09-21 10:27 | P.HPIM ---
History of Present Illness H&P Date: 09/21/19 Chief Complaint: Fever This is a 49-year-old -[place] African male patient of Dr. Moran with past medical history of spina bifida, scoliosis, hydrocephalus status post brain s fuentes, hypertension, DVT, neurogenic bladder with straight catheterization. Patient currently lives in an apartment with his mother and is able to manage his own ADLs. Patient was recently hospitalized for UTI in June and was discharged home on Ceftin. Patient noted yesterday that he developed fever. He denies any lower abdominal or flank pain. His urine was cloudy but this is normal for him. He straight cath several times during the day as needed. Patient came into [facility] emergency center for evaluation. Temperature 102.5, heart rate 105, blood pressure 155/104, pulse ox 100% on room air. EKG sinus tachycardia with no acute ST changes. WBC 12.3 HGB 16.4, PLT 237. Sodium 131, potassium 5.8, chloride 100, CO2 21, BUN 18 and creatinine 0.58. Lactic acid 2.9 and repeat this morning of 1.8. Urinalysis turbid, l nitrate positive, leukoesterase large, RBC 70, wbc's greater than 182, WBC clumps many, bacteria moderate. COVID-19 testing in process. [facility] Patient has been started on ceftriaxone for urinary tract infection. Review of Systems Constitutional: Reports chills, Reports fatigue, Reports fever, Reports poor appetite, Reports weakness, Denies anorexia Eyes: denies blurred vision, denies pain Ears, nose, mouth and throat: Denies dysphagia, Denies headache, Denies nasal congestion, Denies nasal discharge, Denies sore throat, Denies vertigo Cardiovascular: Denies chest pain, Denies decreased exercise tolerance, Denies dyspnea on exertion, Denies edema, Denies irregular heart beat, Denies leg edema, Denies lightheadedness, Denies palpitations, Denies shortness of breath, Denies syncope Respiratory: Denies cough, Denies cough with sputum, Denies dyspnea, Denies excessive sputum, Denies hemoptysis, Denies home oxygen, Denies respiratory infections, Denies sleep apnea, Denies wheezing Gastrointestinal: Denies abdominal pain, Denies diarrhea, Denies nausea, Denies vomiting Genitourinary: Denies dysuria, reports retention Musculoskeletal: Denies frequent falls, Denies gait dysfunction, Denies muscle weakness, Denies myalgias Integumentary: Denies pruritus, Denies rash, Denies wounds Neurological: Denies change in mentation, Denies change in speech, Denies numbness, Denies seizures, Denies weakness Psychiatric: Denies anxiety, Denies depression Endocrine: Denies fatigue, Denies weight change Physical examination Gen: This is a 49-year-old male. Patient is in bed and appears to be operable and in no acute distress. HEENT: Head is atraumatic, normocephalic. Pupils equal, round. Sclerae is anicteric. NECK: Supple. No JVD. No lymphadenopathy. No thyromegaly. LUNGS: Clear to auscultation. No wheezes or rhonchi. No intercostal retractions. HEART: Regular rate and rhythm. No murmur. ABDOMEN: Soft. Bowel sounds are present. No masses. No tenderness. No flank tenderness. EXTREMITIES: No pedal edema. No calf tenderness. Deformity noted to the bilateral lower extremities. Patient is able to lift both legs at the hip j oint. No motion below the knees. NEUROLOGICAL: Patient is awake, alert and oriented x3. Cranial nerves 2 through 12 are grossly intact. Assessment and plan 1. Acute catheter-associated urinary tract infection with sepsis. Urine culture and blood culture in progress. Start ceftriaxone. Consult Dr. Interiano. 2. Lactic acidosis secondary to sepsis, improved. Continue IV fluids. 3. Spina bifida with paraplegia lower extremities. Continue amitriptyline 25 mg at bedtime 4. Neurogenic bladder. Maintain Lou catheter, continue oxybutynin 5 mg daily 5. Hypertension. Continue Toprol-XL 50 mg daily. 6. Recurrent depression. Continue Cymbalta 30 mg twice daily. 7. COVID-19 infection not present. 8. GI prophylaxis. Protonix. 9. DVT prophylaxis. Lovenox. Patient will be admitted to the hospital for a minimum of 2 night stay. Discharge plan: Return home. Impression and plan of care have been directed as dictated by the signing physician. Anna Darden nurse practitioner acting as scribe for signing physician. Past Medical History Past Medical History: Deep Vein Thrombosis (DVT), Hypertension Additional Past Medical History / Comment(s): Has brain shunt, scoliosis, spina bifida, neurogenic bladder History of Any Multi-Drug Resistant Organisms: Other MDRO Past Surgical History: Back Surgery, Bladder Surgery Additional Past Surgical History / Comment(s): brain shunt revision, surgery for scoliosis with screws, back surgery for spina bifida, bladder augmentation, surgery for pressure ulcers. rt hip aspiration with bone biopsy 09-06-2015 Past Anesthesia/Blood Transfusion Reactions: No Reported Reaction Past Psychological History: Anxiety, Depression, Panic Disorder Smoking Status: Never smoker Past Alcohol Use History: Occasional Additional Past Alcohol Use History / Comment(s): Patient is a lifelong nonsmoker, no illicit drug use, rare alcohol use. Patient lives at home with his mother in apartment. He is wheelchair bound and able to manage his own ADLs. Patient normally self catheterizes. Past Drug Use History: None Reported - Past Family History Mother Family Medical History: No Reported History Additional Family Medical History / Comment(s): Mother is alive with no major medical problems. Father Family Medical History: Diabetes Mellitus Additional Family Medical History / Comment(s): Father has history of diabetes. Patient does not have any brothers. Patient has 2 sisters with no major medical problems. Patient is to have any children. Medications and Allergies Home Medications Medication Instructions Recorded Confirmed Type Oxybutynin Chloride [Ditropan] 5 mg PO DAILY@1100 09/01/14 09/20/19 History Amitriptyline HCl 25 mg PO HS@0000 PRN 06/22/19 09/20/19 History DULoxetine HCL [Cymbalta] 30 mg PO BID@0000,1100 06/22/19 09/20/19 History Metoprolol Succinate [Toprol XL] 50 mg PO DAILY@1100 06/22/19 09/20/19 History Naproxen Sodium [Aleve] 440 mg PO DAILY PRN 09/20/19 09/20/19 History Allergies Allergy/AdvReac Type Severity Reaction Status Date / Time Penicillins AdvReac fever Verified 09/20/19 18:55 piperacillin sodium AdvReac Diarrhea Verified 09/20/19 18:55 [From Zosyn] povidone-iodine AdvReac Rash/Hives Verified 09/20/19 18:55 [From Betadine] soap [From Betadine] AdvReac Rash/Hives Verified 09/20/19 18:55 tazobactam sodium AdvReac Diarrhea Verified 09/20/19 18:55 [From Zosyn] Physical Exam Vitals: Vital Signs Temp Pulse Pulse Resp BP BP Pulse Ox 09/21/19 07:00 99.2 F 127 H 18 129/89 96 09/21/19 03:55 99.0 F 98 20 100/65 96 09/21/19 02:00 98.7 F 98 16 107/81 98 09/20/19 20:41 99.5 F 101 H 18 114/70 98 09/20/19 18:51 101.3 F H 105 H 20 128/78 99 09/20/19 18:08 100 20 155/104 99 09/20/19 17:08 20 09/20/19 17:00 102.5 F H 105 H 20 155/104 100 Intake and Output 09/20/19 09/21/19 09/21/19 22:59 06:59 14:59 Output Total 400 Balance -400 Output: Urine 400 Other: Voiding Method Self-Catheterization Weight 77.111 kg 77.111 kg Results CBC & Chem 7: 09/20/19 17:35 09/20/19 17:35 Labs: Abnormal Lab Results - Last 24 Hours (Table) 09/20/19 09/20/19 09/20/19 Range/Units 17:35 17:35 17:35 WBC 12.3 H (3.8-10.6) k/uL Neutrophils # 9.7 H (1.3-7.7) k/uL Sodium 131 L (137-145) mmol/L Potassium 5.8 H (3.5-5.1) mmol/L Carbon Dioxide 21 L (22-30) mmol/L Plasma Lactic Acid Don 2.9 H* (0.7-2.0) mmol/L Urine Protein (Negative) Urine Blood (Negative) Ur Leukocyte Esterase (Negative) Urine RBC (0-5) /hpf Urine WBC (0-5) /hpf Urine WBC Clumps (None) /hpf Urine Bacteria (None) /hpf Urine Mucus (None) /hpf 09/20/19 Range/Units 18:05 WBC (3.8-10.6) k/uL Neutrophils # (1.3-7.7) k/uL Sodium (137-145) mmol/L Potassium (3.5-5.1) mmol/L Carbon Dioxide (22-30) mmol/L Plasma Lactic Acid Don (0.7-2.0) mmol/L Urine Protein Trace H (Negative) Urine Blood Small H (Negative) Ur Leukocyte Esterase Large H (Negative) Urine RBC 70 H (0-5) /hpf Urine WBC >182 H (0-5) /hpf Urine WBC Clumps Many H (None) /hpf Urine Bacteria Moderate H (None) /hpf Urine Mucus Occasional H (None) /hpf Microbiology - Last 24 Hours (Table) 09/20/19 18:05 Urine Culture - Preliminary Urine,Voided Thrombosis Risk Factor Assmnt - Choose All That Apply Any of the Below Risk Factors Present?: No
[2019-09-21] MEDS: METOPROLOL SUCCINATE (ER) 50 MG TAB.ER.24H PO SCH (13:35)
[2019-09-21] MEDS: OXYBUTYNIN CHLORIDE 5 MG TAB PO SCH (13:35)
[2019-09-21] MEDS: SODIUM CHLORIDE 0.9% 1,000 ML IV SCH (20:36)
[2019-09-22] MEDS: DULoxetine HCL 30 MG CAPSULE.DR PO SCH ×2 (00:35→11:52)
[2019-09-22] MEDS: AMITRIPTYLINE HCL 25 MG TAB PO PRN (00:40)
[2019-09-22 06:59] LABS: HCT 47.4 % (39.0-53.0); HGB 15.5 gm/dL (13.0-17.5); Hypochromasia Slight; MCH 32.5 pg (25.0-35.0); MCHC 32.6 g/dL (31.0-37.0); MCV 99.5 fL (80.0-100.0); Mean Platelet Volume 8.4; Platelet Count 213 k/uL (150-450); RBC 4.76 m/uL (4.30-5.90); RDW 13.2 % (11.5-15.5); WBC 10.2 k/uL (3.8-10.6)
[2019-09-22 07:03] LABS: African American GFR (CKD) >90 (>60 ml/min/1.73 sqM); Anion Gap 10 mmol/L; Blood Urea Nitrogen 21 mg/dL (9-20); Calcium 9.5 mg/dL (8.4-10.2); Carbon Dioxide 21 mmol/L (22-30); Chloride 107 mmol/L (98-107); Glucose 100 mg/dL (74-99); Non-African American GFR(CKD) >90 (>60 ml/min/1.73 sqM); Potassium 5.2 mmol/L (3.5-5.1); Sodium 138 mmol/L (137-145)
[2019-09-22 08:04] VITALS: TEMP 98.5
--- NOTE | 2019-09-22 09:52 | P.DS ---
Providers Date of admission: 09/20/19 18:57 Expected date of discharge: 09/22/19 Attending physician: Victor M Aparicio Consults: 09/20/19 18:58 Consult Physician Routine Consulting Provider: James Interiano Consult Reason/Comments: uti sepsis Do you want consulting provider notified?: Yes Primary care physician: Solomon Moran [facility] Course: This is a 49-year-old -Filipino male patient of Dr. Moran with past medical history of spina bifida, scoliosis, hydrocephalus status post brain shunt, hypertension, DVT, neurogenic bladder with straight catheterization. Patient currently lives in an apartment with his mother and is able to manage his own ADLs. Patient was recently hospitalized for UTI in June and was discharged home on Ceftin. Patient noted yesterday that he developed fever. He denies any lower abdominal or flank pain. His urine was cloudy but this is normal for him. He straight cath several times during the day as needed. Patient came into [facility] emergency center for evaluation. Temperature 102.5, heart rate 105, blood pressure 155/104, pulse ox 100% on room air. EKG sinus tachycardia with no acute ST changes. WBC 12.3 HGB 16.4, PLT 237. Sodium 131, potassium 5.8, chloride 100, CO2 21, BUN 18 and creatinine 0.58. Lactic acid 2.9 and repeat this morning of 1.8. Urinalysis turbid, l nitrate positive, leukoesterase large, RBC 70, wbc's greater than 182, WBC clumps many, bacteria moderate. COVID-19 testing in process. Patient was admitted to the [facility] floor. Patient has been started on ceftriaxone for urinary tract infection. 09/21: Patient has been seen by Dr. Interiano. Urine culture has been finalized with no growth. Blood culture showing no growth at [address] Interiano has recommended Ceftin for 7 day course Patient has been afebrile, heart rate 97, blood pressure 99/71, pulse ox 95% on room air. A repeat blood work reveals improved potassium of 5.2, CO2 21, BUN 21 creatinine 0.86. CBC has normalized with Na BC of 10.2, hemoglobin is 15.5, platelet count 213. Patient will be discharged home today in stable condition. Assessment and plan 1. Acute catheter-associated urinary tract infection with sepsis. 2. Lactic acidosis secondary to sepsis, improved. 3. Spina bifida with paraplegia lower extremities. 4. Neurogenic bladder. 5. Hypertension. 6. Recurrent depression. 7. COVID-19 infection not present. Discharge plan: Return home. Impression and plan of care have been directed as dictated by the signing physician. Anna Darden nurse practitioner acting as scribe for signing physician. Patient Condition at Discharge: Good Plan - Discharge Summary Discharge Rx Participant: No New Discharge Prescriptions: New Cefuroxime Axetil [Ceftin] 500 mg PO BID 7 Days #14 tab Continue Oxybutynin Chloride [Ditropan] 5 mg PO DAILY@1100 DULoxetine HCL [Cymbalta] 30 mg PO BID@0000,1100 Amitriptyline HCl 25 mg PO HS@0000 PRN PRN Reason: Insomnia Metoprolol Succinate [Toprol XL] 50 mg PO DAILY@1100 Naproxen Sodium [Aleve] 440 mg PO DAILY PRN PRN Reason: Pain Discharge Medication List Oxybutynin Chloride [Ditropan] 5 mg PO DAILY@1100 09/01/14 [History] Amitriptyline HCl 25 mg PO HS@0000 PRN 06/22/19 [History] DULoxetine HCL [Cymbalta] 30 mg PO BID@0000,1100 06/22/19 [History] Metoprolol Succinate [Toprol XL] 50 mg PO DAILY@1100 06/22/19 [History] Naproxen Sodium [Aleve] 440 mg PO DAILY PRN 09/20/19 [History] Cefuroxime Axetil [Ceftin] 500 mg PO BID 7 Days #14 tab 09/22/19 [Rx] Follow up Appointment(s)/Referral(s): Marek Gaytan MD [REFERRING] - 1 Week (Visiting Physicians) Solomon Moran MD [Primary Care Provider] - 1 Week Patient Instructions/Handouts: Urinary Tract Infection in Men (DC), How to Catheterize Yourself (Man) (GEN) Discharge Disposition: HOME SELF-CARE
[2019-09-22] MEDS: METOPROLOL SUCCINATE (ER) 50 MG TAB.ER.24H PO SCH (11:51)
[2019-09-22] MEDS: OXYBUTYNIN CHLORIDE 5 MG TAB PO SCH (11:52)
--- NOTE | 2019-09-22 12:32 | PN ---
PROGRESS NOTE DATE OF SERVICE: 09/22/2019 REASON FOR FOLLOWUP: Fever, likely urinary tract infection. INTERVAL HISTORY: The patient is currently afebrile. The patient is feeling better. Breathing comfortably. The patient denies having any chest pain or shortness of breath. No nausea, no vomiting. No abdominal pain, no diarrhea. PHYSICAL EXAMINATION: Blood pressure 109/76, pulse of 80, temperature 98.5. He is 95% on room air. General description is a middle-aged male, up in the room in no distress. RESPIRATORY SYSTEM: Unlabored breathing, clear to auscultation anteriorly. HEART: S1, S2. Regular rate and rhythm. ABDOMEN: Soft, no tenderness. LABS: Hemoglobin is 15.2, white count of 10.2, creatinine 0.96. Blood culture so far negative. Urine is pending. DIAGNOSTIC IMPRESSION AND PLAN: Patient admitted to the hospital with fever, elevated white count, source is likely urinary. The patient overall improvement on Rocephin. Finish therapy with oral Ceftin 500 mg twice a day for a week, discussed with the nurse practitioner for admitting team. MMODL / IJN: [id number] /
[2019-09-22 14:21] VITALS: BP 101/69; PULSE 101; RESP 16
== END 2019-09-22 15:50 | disposition home or self-care (01) | DRG 698 ==
LOC: EC 16:58 → 4SSUR 18:57
PROVIDERS: ADMIT Internal Medicine Geriatric Medicine; ATTEND Internal Medicine Geriatric Medicine
DX: T83.518A Infection and inflammatory reaction due to other urinary catheter, initial encounter (principal); A41.9 Sepsis, unspecified organism; N39.0 Urinary tract infection, site not specified; E87.2 Acidosis; F33.9 Major depressive disorder, recurrent, unspecified; G82.20 Paraplegia, unspecified; I10 Essential (primary) hypertension; M41.9 Scoliosis, unspecified; F41.0 Panic disorder [episodic paroxysmal anxiety]; R00.0 Tachycardia, unspecified; Y84.6 Urinary catheterization as the cause of abnormal reaction of the patient, or of later complication, without mention of misadventure at the time of the procedure; N31.9 Neuromuscular dysfunction of bladder, unspecified; Z11.59 Encounter for screening for other viral diseases; Z79.899 Other long term (current) drug therapy; Z88.1 Allergy status to other antibiotic agents; Z88.0 Allergy status to penicillin; Z86.718 Personal history of other venous thrombosis and embolism; Z91.09 Other allergy status, other than to drugs and biological substances; Z98.890 Other specified postprocedural states; Z98.2 Presence of cerebrospinal fluid drainage device; Z83.3 Family history of diabetes mellitus; Q05.9 Spina bifida, unspecified; Z87.440 Personal history of urinary (tract) infections; Z99.3 Dependence on wheelchair
CPT/HCPCS: 36415; 71045; 80048; 81001; 83605; 85025; 85027; 87040; 87086; 93005; 96374; 99285